=== PATIENT | female | born 1950 | race Two or more races ===

== ENCOUNTER → 2021-12-16 13:42 | Outpatient (BNVA) | payer OTHER, SELFPAY | PROVIDERS: PCP Internal Medicine; Visit Provider Psychiatry & Neurology Neurology | DX: Z13.89 Encounter for screening for other disorder (principal) | CPT/HCPCS: Q3014 ==

== ENCOUNTER → 2022-06-11 11:26 | Outpatient (BNVA) | payer OTHER, SELFPAY | PROVIDERS: PCP Internal Medicine; Visit Provider Nurse Practitioner Family | DX: G20 Parkinson's disease (principal); F03.90 Unspecified dementia, unspecified severity, without behavioral disturbance, psychotic disturbance, mood disturbance, and anxiety; R44.3 Hallucinations, unspecified | CPT/HCPCS: 99212 ==

== ENCOUNTER → 2022-12-18 14:26 | Outpatient (BNVA) | payer OTHER, MEDICAID, SELFPAY | PROVIDERS: PCP Internal Medicine; Visit Provider Nurse Practitioner Family | DX: G20 Parkinson's disease (principal); F02.80 Dementia in other diseases classified elsewhere, unspecified severity, without behavioral disturbance, psychotic disturbance, mood disturbance, and anxiety; R44.3 Hallucinations, unspecified; Z79.899 Other long term (current) drug therapy | CPT/HCPCS: 99212 ==

== ENCOUNTER → 2023-06-25 14:37 | Outpatient (BNVA) | payer OTHER, MEDICAID, SELFPAY | PROVIDERS: PCP Internal Medicine; Visit Provider Nurse Practitioner Family | DX: Z76.0 Encounter for issue of repeat prescription (principal); G20.B1 Parkinson's disease with dyskinesia, without mention of fluctuations; R44.3 Hallucinations, unspecified; F03.90 Unspecified dementia, unspecified severity, without behavioral disturbance, psychotic disturbance, mood disturbance, and anxiety; K59.00 Constipation, unspecified | CPT/HCPCS: 99212 ==

== ENCOUNTER 2024-12-20 09:51 | Outpatient (AMB) | payer OTHER, SELFPAY ==
--- NOTE | 2024-12-20 10:01 | MHC.OFFVIS ---
Vital Signs 12/20/24 10:05 BP 110/70 Blood Pressure Location Lt brachial Position Sitting Pulse 75 Pulse Source Pulse Oximeter Pulse Oximetry (%) 96 Oxygen Delivery Method Room Air Intake Visit Reasons: f/u appt Intake Note: Patient presents follow up for Parkinson's and Dementia. [employer]er Required: No Allergies Tetanus Vaccines and Toxoid Allergy (Severe, Verified 12/20/24 10:04) Difficulty Swallowing HPI Comments Details: 71-yr-old female presents for f/u , accompanied by dtr. Dtr provides history. Pt is scheduled to a have a left breast mammogram and US in January d/t new palpable nipple mass and retraction. Denies left breast pain, night sweats, fevers. Denies any significant interval medical changes. Dtr states that [id number]-[id number] 5 x's per day continues to be helpful. Pt continues to need help with all ADLs. She is eating well. Not always drinking well- tries to prevent needing to use the bathroom. Needs to eat slow- may have difficulty with rice, cannot eat soft bread. Constipation- dtr states on current bowel regimen varies between constipation and explosive loose stools- on Miralax, colace, uses prunes/apricots at times. . Her tremor is stable. She can be rigid- stable Left 4th finger is contracted- due to old injury- pt able to partially extend finger. She has some mild LE dyskineisa- non-bothersome. She is overall non-ambulatory, but can take a few steps with 1 assist, and transfers ok. No falls. She continues to have some visual hallucinations- non-bothersome. Pt is not yelling out on her current psych med regimen.? PFSH Medical History Anxiety Cataract fragments in both eyes following surgery Dementia Depression HTN (hypertension) Hyperlipidemia Family History Mother Alzheimer disease Social History Alcohol intake: never Patient Tobacco Use Status: Never used Tobacco Physical Exam Vital Signs: Last Vital Signs Pulse 75 12/20/24 10:05 BP 110/70 12/20/24 10:05 Pulse Ox 96 12/20/24 10:05 Oxygen Delivery Method Room Air 12/20/24 10:05 Const General: cooperative and no acute distress Resp Effort & Inspection: normal respiratory effort and able to speak in complete sentences Neuro Other: Alert, non-verbal, nods/shakes head appropriately. Follows simple commands. Left breast- palpable firm mass at 9 o'clock edge of nipple w/ nipple retraction, non-painful. No postural tremor. FFM- bilateral bradkinesia Foot taps- bradykinesia, more so on left- mild left foot/ankle inversion. Foot taps- induce BLE generalized mild dyskinesia. Pt sitting upright in w/c- able to use her arms to stand up but cannot initiate a step on her own.. General: CN's II-XI intact bilaterally Psych Appearance: grossly normal Affect: normal affect Attitude: cooperative Assessment & Plan Assessment & Plan (1) Parkinson's disease with dyskinesia: Code(s): G20.B1 - Parkinson's disease with dyskinesia, without mention of fluctuations Category: Medical Qualifiers: Fluctuating manifestations: without fluctuating manifestations Qualified Code(s): G20.B1 - Parkinson's disease with dyskinesia, without mention of fluctuations (2) Hallucination: Code(s): R44.3 - Hallucinations, unspecified Category: Medical (3) Dementia: Code(s): F03.90 - Unspecified dementia, unspecified severity, without behavioral disturbance, psychotic disturbance, mood disturbance, and anxiety Category: Medical Qualifiers: Dementia type: Parkinson's disease Dementia severity: unspecified severity Dementia behavioral or psychological symptom: with other behavioral disturbance Qualified Code(s): G20.A1 - Parkinson's disease without dyskinesia, without mention of fluctuations; F02.818 - Dementia in other diseases classified elsewhere, unspecified severity, with other behavioral disturbance (4) Constipation: Code(s): K59.00 - Constipation, unspecified Category: Medical Qualifiers: Constipation type: other constipation type Qualified Code(s): K59.09 - Other constipation Plan Continue carbidopa/levodopa/entacapone 37.5/150/200? 5 times a day 5am, 9am, 12 noon, 3pm, 7pm Monitor hallucinations. Monitor left hand posturing, berlin 4th finger. Track BMs- may adjust bowel regimen for when pt is fluctuating between constipation and loose stools. Continue supportive care. F/u w/ PCP- and mamaogram/US as ordered. f/u in 6 months or sooner prn. Coding Level of Care Code Est Pt Level 4 (03422) Diagnoses Parkinson's disease with dyskinesia without fluctuating manifestations G20.B1 Fluctuating manifestations: without fluctuating manifestations Hallucination R44.3 Dementia due to Parkinson's disease, with other behavioral disturbance, unspecified dementia severity G20.A1; F02.818 Dementia type: Parkinson's disease Dementia severity: unspecified severity Dementia behavioral or psychological symptom: with other behavioral disturbance Other constipation K59.09 Constipation type: other constipation type
[2024-12-20 10:05] VITALS: BP 110/70; PULSE 75; O2SAT 96
--- OUTSIDE RECORDS SUMMARY | 2024-12-20 11:00 | XMS_ITS | Clinical Summary ---
Author Organization [facility] [employer] [facility] ity Address [address] [place] [address] Care Team Providers Care Child Development Professor Name Role Phone Unavailable Primary Care Provider Unavailabl e Social History Tobacco Use Types Packs/Day Years Used Date Smoking Tobacco: Never Assessed Comments Unknown Sex and Gender Information Value Date Recorded Sex Assigned at Not on file Legal Sex Female 4:50 AM EST Gender Identity Not on file Sexual Orientation Not on file Plan of Treatment Health Maintenance Due Date Last Done Comments DTaP,Tdap,and Td Vaccines (1 - Tdap) 1969 Pneumococcal Vaccine: 50+ Ye ars (1 of 1 - PCV) 10/31/1999 Zoster Vaccines (1 of 2) 10/31/1999 Colorectal Cancer Screening: Colonoscopy 07/20/2022 Depression Screening 07/20/2022 Falls Risk Assessment 07/20/2022 Hepatitis C Screening 07/20/2022 Osteoporosis Screening (Bone Density Screening) 07/20/2022 Social Influencers of Health Screening 07/20/2022 COVID-19 Vaccine ( - 2023-2 5 season) 2024 RSV Immunization Adult Patie nts (1 - 1-dose 75+ series) 2024 Influenza Vaccine (Season Ended) 2025 HIB Vaccines Aged Out No longer eligi ble based on patient's age to complete this topic HPV Vaccines Aged Out No longer eligi ble based on patient's age to complete this topic Hepatitis A Vaccines Aged Out No long er eligible based on patient's age to complete this topic Hepatitis B Vaccines Aged Out No long er eligible based on patient's age to complete this topic IPV Vaccines Aged Out No longer eligi ble based on patient's age to complete this topic MMR Vaccines Aged Out No longer eligi ble based on patient's age to complete this topic Meningococcal ACWY Vaccine Aged Out N o longer eligible based on patient's age to complete this topic Meningococcal B Vaccine Aged Out No l onger eligible based on patient's age to complete this topic RSV Immunization Patients Un dalia 20 months Aged Out No longer eligible b ased on patient's age to complete this topic Varicella Vaccines Aged Out No longer eligible based on patient's age to complete this topic
== END 2024-12-20 10:45 | disposition home or self-care (01) ==
LOC: HO.HSMS 09:51
PROVIDERS: PCP Internal Medicine; Visit Provider Nurse Practitioner Family
DX: G20.B1 Parkinson's disease with dyskinesia, without mention of fluctuations (principal); R44.3 Hallucinations, unspecified; G20.A1 Parkinson's disease without dyskinesia, without mention of fluctuations; F02.818 Dementia in other diseases classified elsewhere, unspecified severity, with other behavioral disturbance; K59.09 Other constipation
CPT/HCPCS: 99214

== ENCOUNTER → 2024-12-20 09:51 | Outpatient (BNVA) | payer OTHER, SELFPAY | PROVIDERS: PCP Internal Medicine; Visit Provider Nurse Practitioner Family | DX: G20.B1 Parkinson's disease with dyskinesia, without mention of fluctuations (principal); F02.818 Dementia in other diseases classified elsewhere, unspecified severity, with other behavioral disturbance; R44.3 Hallucinations, unspecified; K59.09 Other constipation | CPT/HCPCS: 99212 ==

== ENCOUNTER 2025-06-20 13:32 | Outpatient (AMB) | payer OTHER, SELFPAY ==
--- NOTE | 2025-06-20 13:56 | MHC.OFFVIS ---
Vital Signs 06/20/25 14:05 BP 110/60 Blood Pressure Location Rt brachial Pulse 71 Pulse Source Pulse Oximeter Pulse Oximetry (%) 95 Oxygen Delivery Method Room Air Intake Visit Reasons: 6 mo follow up Intake Note: Patient presents follow up for Parkinson's and Dementia. 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 Accompanied by: Daughter Allergies Tetanus Vaccines and Toxoid Allergy (Severe, Verified 06/20/25 14:04) Difficulty Swallowing Medication List - Last Reconciled 06/20/25 by DIRK Bazan aspirin 81 mg PO DAILY atorvastatin 40 mg PO DAILY PRN benztropine 2 mg PO BID eituutleh-gwvkolhq-uuqshekako 37.5-150-200 mg 1 tab orally 5 x's per day; 30 days cyanocobalamin (vitamin B-12) 1,000 mcg PO DAILY docusate sodium 100 mg PO BID duloxetine 20 mg PO DAILY fluticasone propionate 50 mcg/actuation sprays intranasal gabapentin 100 mg PO BID mirtazapine 45 mg PO BEDTIME polyethylene glycol 3350 (Miralax) 17 grams PO DAILY quetiapine 200 mg PO BEDTIME quetiapine 50 mg PO BID HPI Comments Details: 74-yr-old female presents for f/u , accompanied by dtr. Dtr provides history. Pt's dtr repprts that pt was diagnosed w/ left breast cancer in Apr, and underwent surgical excision and plans to start radiation therapy on . Denies left breast pain, night sweats, fevers. Denies any significant interval medical changes. Dtr states that emejkeuop-udnakwvm-pfautcorey 5 x's per day continues to be helpful, however someone days she is more stiff nad rigid in the early day, even with taking her doses at the same time everyday. Pt continues to need help with all ADLs. She is eating well. Still not prone to drinking well. Needs to eat slow- may have difficulty with rice, cannot eat soft bread. Constipation- dtr states on current bowel regimen varies between constipation and explosive loose stools- on Miralax, colace, uses prunes/apricots at times. Her tremor is stable. She is more prone to stiffness than tremor. Left 4th finger is contracted- due to old injury- pt able to partially extend finger. She has stable some mild LE dyskineisa- non-bothersome. She is overall non-ambulatory, and needs assist to transfer. No falls. She continues to have some visual hallucinations- non-bothersome, but occasionally yelling out. . [facility] Medical History Anxiety Cataract fragments in both eyes following surgery Dementia Depression HTN (hypertension) Hyperlipidemia Family History Mother Alzheimer disease Social History Alcohol intake: never Patient Tobacco Use Status: Never used Tobacco Physical Exam Vital Signs: Last Vital Signs Pulse 71 06/20/25 14:05 BP 110/60 06/20/25 14:05 Pulse Ox 95 06/20/25 14:05 Oxygen Delivery Method Room Air 06/20/25 14:05 Const General: cooperative and no acute distress Resp Effort & Inspection: normal respiratory effort and able to speak in complete sentences Neuro Other: Alert, non-verbal, nods/shakes head appropriately. Follows simple commands. No postural tremor. FFM- bilateral bradkinesia Foot taps- bradykinesia, more so on left- mild left foot/ankle inversion. Pt sitting upright in w/c- able to use her arms to stand up. General: CN's II-XI intact bilaterally Psych Appearance: grossly normal Affect: normal affect Attitude: cooperative Assessment & Plan Assessment & Plan (1) Parkinson's disease with dyskinesia: Code(s): G20.B1 - Parkinson's disease with dyskinesia, without mention of fluctuations Category: Medical (2) Hallucination: Code(s): R44.3 - Hallucinations, unspecified Category: Medical (3) Dementia: Code(s): F03.90 - Unspecified dementia, unspecified severity, without behavioral disturbance, psychotic disturbance, mood disturbance, and anxiety Category: Medical Qualifiers: Dementia behavioral or psychological symptom: with other behavioral disturbance Dementia severity: unspecified severity Dementia type: Parkinson's disease Qualified Code(s): G20.A1 - Parkinson's disease without dyskinesia, without mention of fluctuations; F02.818 - Dementia in other diseases classified elsewhere, unspecified severity, with other behavioral disturbance (4) Constipation: Code(s): K59.00 - Constipation, unspecified Category: Medical Qualifiers: Constipation type: other constipation type Qualified Code(s): K59.09 - Other constipation (5) Breast cancer, left breast: Code(s): C50.912 - Malignant neoplasm of unspecified site of left female breast Category: Medical Qualifiers: Breast location: unspecified site of breast Estrogen receptor status: unspecified Patient sex: female Qualified Code(s): C50.912 - Malignant neoplasm of unspecified site of left female breast Plan Continue carbidopa/levodopa/entacapone 37.5/150/200? 5 times a day 5am, 9am, 12 noon, 3pm, 7pm Monitor hallucinations. Monitor left hand posturing, berlin 4th finger. Continue to monitor BMs- may adjust bowel regimen for when pt is fluctuating between constipation and loose stools. Continue supportive care. Follow-up with Oncology and Radiation Oncology for management of left breast CA as scheduled. Discussed that her PD symptoms maybe exacerbated while she undergoes cancer treatment and radiation therapy. Encouraged to call us with any questions or concerns. f/u in 6 months or sooner prn. Coding Level of Care Code Est Pt Level 4 (89320) Diagnoses Parkinson's disease with dyskinesia G20.B1 Hallucination R44.3 Dementia due to Parkinson's disease, with other behavioral disturbance, unspecified dementia severity G20.A1; F02.818 Dementia behavioral or psychological symptom: with other behavioral disturbance Dementia severity: unspecified severity Dementia type: Parkinson's disease Other constipation K59.09 Constipation type: other constipation type Malignant neoplasm of left female breast, unspecified estrogen receptor status, unspecified site of breast C50.912 Breast location: unspecified site of breast Estrogen receptor status: unspecified Patient sex: female
[2025-06-20 14:05] VITALS: BP 110/60; PULSE 71; O2SAT 95
== END 2025-06-20 14:57 | disposition home or self-care (01) ==
LOC: HO.HSMS 13:33
PROVIDERS: PCP Internal Medicine; Visit Provider Nurse Practitioner Family
DX: G20.B1 Parkinson's disease with dyskinesia, without mention of fluctuations (principal); R44.3 Hallucinations, unspecified; G20.A1 Parkinson's disease without dyskinesia, without mention of fluctuations; F02.818 Dementia in other diseases classified elsewhere, unspecified severity, with other behavioral disturbance; K59.09 Other constipation; C50.912 Malignant neoplasm of unspecified site of left female breast
CPT/HCPCS: 99214

== ENCOUNTER → 2025-06-20 13:32 | Outpatient (BNVA) | payer OTHER, SELFPAY | PROVIDERS: PCP Internal Medicine; Visit Provider Nurse Practitioner Family | DX: G20.B1 Parkinson's disease with dyskinesia, without mention of fluctuations (principal); R44.3 Hallucinations, unspecified; G20.A1 Parkinson's disease without dyskinesia, without mention of fluctuations; F02.818 Dementia in other diseases classified elsewhere, unspecified severity, with other behavioral disturbance; K59.09 Other constipation; C50.912 Malignant neoplasm of unspecified site of left female breast; Z79.899 Other long term (current) drug therapy | CPT/HCPCS: 99212 ==